=== PATIENT | female | born 1995 | race Two or more races ===

== ENCOUNTER 2024-03-05 14:36 | Emergency (ER) | payer OTHER ==
[~2024-03-05] VITALS: Ht 165.1 cm; Wt 54.4 kg
[2024-03-05] MEDS ORDERED: WELLBUTRIN SR150 MG PO (14:47)
[2024-03-05] MEDS ORDERED: XANAX1 MG PO (14:47)
== END 2024-03-05 16:08 | disposition home or self-care (01) ==
LOC: ER 14:37
DX: F41.8 Other specified anxiety disorders (principal)